=== PATIENT | male | born 1980 | race Caucasian/White ===

== ENCOUNTER 2018-09-11 19:48 | Emergency (ER) | payer OTHER, SELFPAY ==
[2018-09-11] VITALS (29 sets, daily range): BP systolic 184–221; BP diastolic 118–135; PULSE 87–100; RESP 2–20; TEMP 36.9–37.9; O2SAT 87–94
--- NOTE | 2018-09-11 20:19 | DI.RAD_ITS ---
SYMPTOM/DIAGNOSIS: COUGH, CONGESTION PA AND LATERAL CHEST: Comparison is made with 04/03/07. The heart is normal in size. The lungs are clear. The mediastinal structures and pleura appear intact. CONCLUSION: Normal chest.
--- NOTE | 2018-09-11 20:22 | ED.GENADUL_ITS ---
Discharge Plan Disposition Patient Disposition: HOME Condition: Poor Discharge Details Chief Complaint: RespSymp Clinical Impression: Community acquired pneumonia, Hypertension Primary Care Provider: Romelia De León ED Provider: Stuart Cisse Home Meds and New Rx's Prescriptions: New prednisone 20 mg tablet 60 mg PO DAILY 4 Days Qty: 12 RF: 0 levofloxacin 750 mg tablet 750 mg PO DAILY Qty: 6 RF: 0 Discharge Instructions Instructions: Community Acquired Pneumonia (ED), Hypertension (ED) Additional Instructions: follow up with your primary care provider to discuss having blood pressure medication and also having outpatient stress testing if you have worsening symptoms return to the emergency department for reevaluation Medical Decision Making <Peyman Lu MD - Last Filed: 09/11/18 22:50> 38-year-old male smoker presents with cough and congestion over 10 days time with associated fever and chills. He arrives hypertensive, pulse 100, with an oxygenation of 92% on room air. He is afebrile. Exam is notable for rhonchi and wheeze bilaterally. Differential diagnosis includes viral syndrome with bronchospasm, atypical presentation of congestive heart failure, pneumonia. Patient was placed on monitoring coordinator, had IV access established, given parenteral medications, fluids , referred for chest x-ray and laboratory testing. Patient's diagnostic studies reveal a white blood cell count 11, reassuring chemistries, AST 45, ALT 84. Patient's troponin is indeterminate at 0.08. BNP unremarkable. Given the patient's respiratory complaints, hypoxia, I do feel a PE must be excluded. As it is change of shift, patient be signed out to Dr. Jarek persaud. Please see his note regarding details of the patient's diagnostic imaging Lab Data Lab results reviewed: Yes I reviewed the patient's lab results. Laboratory Tests Range/Units 09/11/18 09/11/18 20:24 20:24 WBC (4.4-10.8) k/cumm 11.23 H RBC (4.50-6.00) m/cumm 5.00 Hgb (13.5-17.5) g/dL 16.6 Hct (40.0-50.0) % 45.5 MCV (80-95) fL 91.0 MCH (27.0-33.0) pg 33.2 H MCHC (32.0-36.0) g/dL 36.5 H RDW (11.8-14.1) % 12.7 Plt Count (130-400) x1000/uL 284 MPV (8.0-11.0) fL 10.1 Immature Gran % 0.4 Neutrophils % 68.2 Lymphocytes % 21.3 Monocytes % 6.9 Eosinophils % 2.8 Basophils % 0.4 Absolute Neutrophils (1.2-6.7) k/cumm 7.66 H Absolute Lymphocytes (1.2-3.4) k/cumm 2.39 Absolute Monocytes (0.11-0.7) k/cumm 0.77 H Absolute Eosinophils (0.0-0.7) k/cumm 0.31 Absolute Basophils (0.0-0.2) k/cumm 0.04 Sodium (136-145) mmol/L 139 Potassium (3.5-5.1) mmol/L 3.6 Chloride (98-107) mmol/L 101 Carbon Dioxide (21.0-32.0) mmol/L 28.3 Anion Gap (3-11) mmol/L 9.7 BUN (7-18) mg/dL 15 Creatinine (0.70-1.30) mg/dL 1.13 Estimated GFR/1.73 m2 (mL/min/1.73m2) >= 60.00 Glucose (70-100) mg/dL 164 H Calcium (8.5-10.1) mg/dL 9.2 Total Bilirubin (0.2-1.0) mg/dL 0.5 AST (15-37) U/L 45 H ALT (12-78) U/L 84 H Alkaline Phosphatase (46-116) U/L 77 Total Protein (6.4-8.2) g/dL 7.9 Albumin (3.4-5.0) g/dL 4.0 ECG Data Attestation: I personally reviewed and interpreted this ECG (s) as follows: Interpretation: Normal sinus rhythm, rate of 93, QRS is narrow, there is nonspecific T wave flattening with T wave inversions in the lateral leads. <Stuart Cisse MD - Last Filed: 09/11/18 23:46> Imaging Data Radiologic Study: Attestation: I personally reviewed and interpreted this imaging study as follows: Imaging: CT Scan Radiologist's impression: vrad report reviewed, no pe but has evidence of infection Lab Data Lab results reviewed: Yes I reviewed the patient's lab results. HPI <Peyman Lu MD - Last Filed: 09/11/18 22:50> General Mode of arrival: ambulatory . Date/Time Provider Initiated Documentation: 09/11/18 20:09 . Limitations to Documentation: no limitations . Information obtained by: patient . History of Present Illness 38 year old M presents to the emergency department with the chief complaint of Cough and congestion, described as moderate, Quality is described as aching , and is localized to the chest. Patient started experiencing this day(s) and it has been constant. No relieving factors improve symptom(s), No exacerbating factors reported . Patient notes fever/chills. HPI Narrative: 38-year-old male smoker who rarely sees a physician and does not have ongoing medical care presents with 10 days of cough, congestion, intermittent fever and chills Related Data Home Medications Medication Instructions Recorded Confirmed levofloxacin 750 mg PO DAILY #6 tab 09/11/18 prednisone 60 mg PO DAILY 4 Days #12 tab 09/11/18 Previous Rx's Medication Instructions Recorded levofloxacin 750 mg PO DAILY #6 tab 09/11/18 prednisone 60 mg PO DAILY 4 Days #12 tab 09/11/18 Allergies Allergy/AdvReac Type Severity Reaction Status Date / Time Penicillins Allergy Unverified 09/11/18 19:56 General Stated Complaint: RespSymp BRIAN: 3 Review of Systems <Peyman Lu MD - Last Filed: 09/11/18 22:50> Review of Systems 8 systems reviewed and otherwise - Exam <Peyman Lu MD - Last Filed: 09/11/18 22:50> Narrative Exam Narrative: GEN: awake, alert, oriented 3. Pleasant, well groomed, interactive. HEAD: Normocephalic, atraumatic ENT: Mucous membranes moist, oropharynx unremarkable, External ear exam unremarkable EYES: PERRL, EOMI NECK: Full ROM, no OSWALDO, no menigismus CHEST/RESP: Nontender, right greater than left rhonchi, end exp wheeze present bilat CARDIOVASCULAR: Regular and tach, no murmur, rub velma. 2+ Rad pulse bilateral ABDOMEN: Soft, nontender, no mass. +Bowel sounds EXT: Full ROM, no edema, no rash Neuro: Grossly normal neurologic exam, conversant, interactive. Psych: Speech fluent, thoughts congruent, affect normal Course <Peyman Lu MD - Last Filed: 09/11/18 22:50> Vital Signs Temperature 36.9 C 09/11/18 19:51 Pulse 100 H 09/11/18 19:51 Respiratory Rate 20 09/11/18 19:51 Blood Pressure 221/133 H 09/11/18 19:51 Pulse Oximetry 92 L 09/11/18 19:51 Temperature 36.9 C 09/11/18 19:51 Temperature Source Skin 09/11/18 19:51 Pulse 100 H 09/11/18 19:51 Respiratory Rate 20 09/11/18 19:51 Respiratory Effort 09/11/18 20:04 Respiratory Depth Normal 09/11/18 20:04 Blood Pressure 221/133 H 09/11/18 19:51 Blood Pressure Position Sitting 09/11/18 19:51 Pulse Oximetry 92 L 09/11/18 19:51 Oxygen Delivery Method Room Air 09/11/18 19:51 Oxygen Flow Rate 0 09/11/18 19:51 Sign Out <Peyman Lu MD - Last Filed: 09/11/18 22:50> Sign Out Data: Sign Out Comment: Follow-up CT Last updated by Peyman Lu MD at 09/11/18 22:50 Post-Handoff Eval: Pt remains hd stable, does have htn, but doesn't seen a pcp regularly so could have undiagnosed htn, has no chest pain or pressure or sob so do not feel acute antihypternsive needed at this time. His CTA shows no Pe but does have evidence of infection so started levofloacin given pcn allergy. He has no desire to stay despite delta troponin being 0.10, and understands risks of leaving including /permanent disability and has capacity to make his own decisions and is leaving Against my medical advise. I will start him on course of steroids and abx, advised return if worsening/changes mind and return precautions given. Also advised f/u with pcp and discuss antihtn meds if continues to be hypertensive
[2018-09-11] MEDS: Albuterol/Ipratropium 3 ML UPD VIAL UPD ×2 (20:34→21:39)
[2018-09-11] MEDS: Ketorolac 30 MG/ML VIAL IVP (20:34)
[2018-09-11] MEDS: Normal Saline 1,000 ML 1000 ML IV (20:35)
[2018-09-11 20:46] LABS: ALT 84 U/L (12-78); AST 45 U/L (15-37); Alkaline Phosphatase 77 U/L (46-116); Anion Gap 9.7 mmol/L (3-11); BUN 15 mg/dL (7-18); Bilirubin, Total 0.5 mg/dL (0.2-1.0); CO2 28.3 mmol/L (21.0-32.0); CREATININE 1.13 mg/dL (0.70-1.30); Calcium 9.2 mg/dL (8.5-10.1); Chloride 101 mmol/L (98-107); Glucose 164 mg/dL (70-100); Potassium 3.6 mmol/L (3.5-5.1); Sodium 139 mmol/L (136-145); Total Protein 7.9 g/dL (6.4-8.2)
[2018-09-11 21:13] LABS: Abs Immature Grans 0.05 k/cumm (0.0-0.09); Absolute Basophil Count 0.04 k/cumm (0.0-0.2); Absolute Eosinophil Count 0.31 k/cumm (0.0-0.7); Absolute Lymphocyte Count 2.39 k/cumm (1.2-3.4); Absolute Monocyte Count 0.77 k/cumm (0.11-0.7); Basophils % 0.4; Eosinophils % 2.8; HCT 45.5 % (40.0-50.0); HGB 16.6 g/dL (13.5-17.5); Immature Grans % 0.4; Lymphocytes % 21.3; Mean Corp. HGB Concentration 36.5 g/dL (32.0-36.0); Mean Corpuscular Hemoglobin 33.2 pg (27.0-33.0); Mean Platelet Volume 10.1 fL (8.0-11.0); Monocytes % 6.9; Neutrophils % 68.2; Platelet Count 284 x1000/uL (130-400); RBC Distribution Width 12.7 % (11.8-14.1); White Blood Cell Count 11.23 k/cumm (4.4-10.8)
[2018-09-11 21:14] LABS: Absolute Neutrophil Count 7.66 k/cumm (1.2-6.7)
--- NOTE | 2018-09-11 21:28 | DI.VRAD_ITS ---
EXAM: XR Chest, 2 Views EXAM DATE/TIME: 09/11/2018 8:20 PM CLINICAL HISTORY: 38 years old, male; Signs and symptoms; Other: Cough, congestion TECHNIQUE: XR of the chest, 2 views. COMPARISON: No relevant prior studies available. FINDINGS: Lungs: Unremarkable. No consolidation. Pleural space: Unremarkable. No pleural effusion. No pneumothorax. Heart/Mediastinum: Unremarkable. No cardiomegaly. Bones/joints: No acute bony findings. IMPRESSION: Normal chest x-ray. Dictated and Authenticated by: Elton Galindo MD. Ordering:ARRON AREVALO MD
[2018-09-11] MEDS: methylPREDNISolone SUCC 125 MG VIAL IVP (21:53)
[2018-09-11 22:11] LABS: NT-proBNP 129 pg/mL
[2018-09-11 22:13] LABS: Troponin I 0.08 ng/mL (0.00-0.06)
--- NOTE | 2018-09-11 22:22 | DI.CT_ITS ---
SYMPTOM/DIAGNOSIS: SOB, BORDERLINE TROPONIN PE CHEST CT: CT angiography was performed with multi slice acquisition and multi planar and 3D reconstruction. CT scan of the chest was performed according to the pulmonary embolus protocol. There are no priors for comparison. There is no evidence of a pulmonary embolus. The thoracic aorta is of normal caliber. No evidence of a thoracic aortic dissection or aneurysm. Heart size is within normal limits. No significant pericardial effusion. No findings to suggest right ventricular dysfunction. No significant thoracic adenopathy is seen. No pleural effusion or pneumothorax is identified. Within the lungs, there are infiltrates seen predominantly involving the right lower lobe but there does appear to be involvement in the right middle and left lower lobe. This has a tree and bud appearance. No focal consolidating infiltrates are seen. The tracheobronchial tree is unremarkable. Upper abdominal images show diffuse decreased attenuation of the liver most suggestive of hepatic steatosis. Note is made of mild bilateral gynecomastia. IMPRESSION: 1. No evidence of a pulmonary embolus, thoracic aortic dissection or aneurysm. 2. Diffuse centrilobular tree and bud nodular opacities , predominantly affecting the right lower lobe but also involving the right middle and left lower lobes. The findings are suspicious for an atypical pneumonia. 3. Hepatic steatosis and mild gynecomastia.
[2018-09-11] MEDS: Omnipaque 350 MG/ML 100 ML BTL IV (22:37)
--- NOTE | 2018-09-11 23:12 | DI.VRAD_ITS ---
EXAM: CT Angiography Chest With Intravenous Contrast EXAM DATE/TIME: 09/11/2018 10:24 PM CLINICAL HISTORY: 38 years old, male; Signs and symptoms; Other: SOB, borderline troponin TECHNIQUE: Axial computed tomographic angiography images of the chest with intravenous contrast using CT angiography protocol. All CT scans at this facility use at least one of these dose optimization techniques: automated exposure control; mA and/or kV adjustment per patient size (includes targeted exams where dose is matched to clinical indication); or iterative reconstruction. Coronal and sagittal reformatted images were created and reviewed. MIP reconstructed images were created and reviewed. CONTRAST: 100 ml of omnipaque 350 administered intravenously. COMPARISON: CR XR CHEST 2V PA LATERAL 09/11/2018 9:00 PM FINDINGS: Pulmonary arteries: No evidence of pulmonary embolism. Aorta: Normal. No aortic aneurysm. No aortic dissection. Lungs: There are centrilobular opacities in a tree in bud distribution throughout the right lung, most prominently affecting the right middle and lower lobes. More subtle opacity is seen in the left lower lobe. These findings are nonspecific but most likely reflect endobronchial spread of infection, likely atypical pneumonia. There is no large consolidation. Pleural space: Normal. No pneumothorax. No pleural effusion. Heart: Normal. No cardiomegaly. No pericardial effusion. Bones/joints: Unremarkable. No acute fracture. Soft tissues: Mild gynecomastia. Lymph nodes: Unremarkable. No enlarged lymph nodes. IMPRESSION: 1. Diffuse centrilobular tree in bud nodular opacities, most prominently affecting the right middle and lower lobes. The findings are nonspecific but most likely reflect endobronchial spread of infection, likely atypical pneumonia. 2. No evidence of pulmonary embolism. 3. Mild gynecomastia. Dictated and Authenticated by: Shonna Coleman MD. Ordering:ARRON AREVALO MD
[2018-09-11] MEDS: LEVOFLOXACIN 500 MG, LEVOFLOXACIN 250 MG 750 MG PO (23:18)
[2018-09-12] MEDS: Albuterol HFA 8 GM 60 PUFF INH IH
[2018-09-12] MEDS: Inhaler, Assist Device 1 EACH MC (00:02)
== END 2018-09-12 | disposition home or self-care (01) ==
PROVIDERS: Emergency Medicine; Emergency Provider Emergency Medicine
DX: J18.9 Pneumonia, unspecified organism (principal); I10 Essential (primary) hypertension; R09.02 Hypoxemia; F17.210 Nicotine dependence, cigarettes, uncomplicated
CPT/HCPCS: 36415; 71275; 80053; 93005; 94640; 96361; 96374; 96375; 99285; 71046; 83880; 84484; 85025; 93010; J1885; J2930; J3490; J7620

== ENCOUNTER 2018-10-09 17:33 | Outpatient (REF) | payer OTHER, SELFPAY ==
[2018-10-09 22:13] LABS: Prothrombin Time 9.4 sec (9.3-10.8)
[2018-10-09 22:15] LABS: Bilirubin Negative (Negative); Blood Negative (Negative); Clarity Clear; Glucose Negative (Negative); Ketones Negative (Negative); Leukocyte Esterase Trace (Negative); Nitrite Negative (Negative); Specific Gravity 1.025 (1.005-1.025); Urobilinogen 0.2 EU/dL (Up TO 0.2); pH 5.5 (5-8)
[2018-10-09 22:34] LABS: Bacteria Negative HPF (Negative); C & S Indicated? No; Casts Negative LPF (Negative); Crystals Negative HPF (Negative); Epithelial Cells Negative HPF (Negative); Mucus Negative (Negative); Other Cells Negative (Negative); RBC Negative (0-2); WBC Negative HPF (0-5)
[2018-10-09 23:02] LABS: ALT 83 U/L (12-78); AST 34 U/L (15-37); Albumin 4.3 g/dL (3.4-5.0); Alkaline Phosphatase 68 U/L (46-116); Anion Gap 9.7 mmol/L (3-11); BUN 13 mg/dL (7-18); Bilirubin, Total 0.5 mg/dL (0.2-1.0); CO2 29.3 mmol/L (21.0-32.0); CREATININE 0.99 mg/dL (0.70-1.30); Calcium 9.8 mg/dL (8.5-10.1); Chloride 101 mmol/L (98-107); Cholesterol 205 mg/dL (50-200); Folate 14.8 ng/mL (8.6-20.0); Glucose 87 mg/dL (70-100); HDL Cholesterol 39 mg/dL (40-60); LDL CHOLESTEROL 135 mg/dL (<100); Potassium 3.8 mmol/L (3.5-5.1); Sodium 140 mmol/L (136-145); Total Protein 7.5 g/dL (6.4-8.2); Triglyceride 171 mg/dL (30-150); Vitamin B12 637 pg/mL (193-986)
[2018-10-11 10:28] LABS: Hepatitis A Antibody IgM Negative (NEGAT); Hepatitis B Core Antibody Negative (NEGAT); Hepatitis B surface Ag Negative (NEGAT); Hepatitis C Ab w Rflx HCV PCR Negative (NEGAT)
== END 2018-10-09 17:53 ==
LOC: NCHCN 17:33
PROVIDERS: Visit Provider Nurse Practitioner Family
DX: F10.10 Alcohol abuse, uncomplicated (principal); I10 Essential (primary) hypertension; R80.9 Proteinuria, unspecified; Z00.00 Encounter for general adult medical examination without abnormal findings
CPT/HCPCS: 80053; 80061; 83721; 86704; 86709; 86803; 87340; 81003; 81015; 82607; 82746; 85610

== ENCOUNTER 2021-07-03 16:00 | Outpatient (REF) | payer SELFPAY ==
[2021-07-03 21:16] LABS: HCT 47.4 % (40.0-50.0); HGB 16.4 g/dL (13.5-17.5)
[2021-07-03 21:30] LABS: ALT 128 U/L (16-63); AST 61 U/L (15-37); Alkaline Phosphatase 64 U/L (46-116); BUN 17 mg/dL (7-18); Bilirubin, Total 0.4 mg/dL (0.2-1.0); CREATININE 1.1 mg/dL (0.70-1.30); Calcium 9.4 mg/dL (8.5-10.1); Calculated LDL 100 mg/dL (<100); Chloride 104 mmol/L (98-107); Cholesterol 197 mg/dL (<200); Glucose 82 mg/dL (74-106); HDL Cholesterol 32 mg/dL (40-60); Potassium 4.4 mmol/L (3.5-5.1); Sodium 143 mmol/L (136-145); TSH (W/Ref FT4) 0.72 uIU/mL (0.36-3.74); Total Protein 7.3 g/dL (6.4-8.2); Triglyceride 325 mg/dL (<150)
[2021-07-06 10:54] LABS: Hepatitis C Ab w Rflx HCV PCR Negative (Negative)
== END 2021-07-03 16:01 | disposition home or self-care (01) ==
LOC: NCHCN 16:00
PROVIDERS: Visit Provider Family Medicine
DX: I10 Essential (primary) hypertension (principal); G47.9 Sleep disorder, unspecified; R53.83 Other fatigue; Z00.00 Encounter for general adult medical examination without abnormal findings
CPT/HCPCS: 80053; 80061; 86803; 84443; 85014; 85018

== ENCOUNTER 2024-06-16 11:48 | Emergency (ER) | payer BC, SELFPAY ==
[2024-06-16] VITALS (44 sets, daily range): BP systolic 191–253; BP diastolic 116–164; PULSE 72–104; RESP 7–22; TEMP 36.5; O2SAT 97–100
--- NOTE | 2024-06-16 11:45 | DI.RAD_ITS ---
Exam(s) XR ANKLE LT 2V EXAM: XR ANKLE LT 2V CLINICAL HISTORY: dislocation. TECHNIQUE: 2D digital imaging was performed. COMPARISON: No exams were available for comparison FINDINGS: Two views There is a displaced and comminuted fracture dislocation of the ankle-tibiotalar joint. Talus is dis located anteriorly and laterally. In addition there is a displaced comminuted fracture at the juncti on of the mid and distal thirds of the fibula. There are no malleolar fractures. IMPRESSION: Fracture dislocation of the ankle joint. Also comminuted fracture of fibula DATA REPOSITORY: RADIATION DOSE DELIVERED:
[2024-06-16] MEDS: Ondansetron 4 MG/2 ML VIAL IVP (12:11)
[2024-06-16] MEDS: fentaNYL 100 MCG/2 ML VIAL IVP (12:12)
--- NOTE | 2024-06-16 12:30 | DI.RAD_ITS ---
Exam(s) XR ANKLE LT COMPLETE EXAM: XR ANKLE LT COMPLETE CLINICAL HISTORY: reduction. TECHNIQUE: 2D digital imaging was performed. COMPARISON: CR,XR XR ANKLE LT 2V from 06/16/2024 FINDINGS: 3 in cast views The fracture dislocation of the ankle is been reduced with significant improvement in alignment of th e tibiotalar joint. In addition, there is improved alignment of the comminuted fracture at the junct ion of the mid and distal thirds of the fibula. Talar dome is intact. IMPRESSION: Fracture dislocation of the tibiotalar joint is been reduced. Significant improvement in alignment a s described above. DATA REPOSITORY: RADIATION DOSE DELIVERED:
[2024-06-16] MEDS: Propofol 200 MG/20 ML VIAL 100 MG IVP (12:38)
--- NOTE | 2024-06-16 12:54 | RESPIRATORY ---
06/16/2024 RT present for consious sedation. Ambu bag, oral/nasal airway, NRB, suction at bedside. Continuous CO2 monitoring and 2L nc ON PT. No RT interventions needed. End vitals HR 88, RR15, ETCO2 32,SPO2 100% on 2L. Pt awake and talking when RT left room.
--- NOTE | 2024-06-16 13:24 | DI.VRAD_ITS ---
PROCEDURE INFORMATION: Exam: XR Left Ankle Exam date and time: 06/16/2024 12:59 PM Age: 44 years old Clinical indication: Other: Post reduction TECHNIQUE: Imaging protocol: Radiologic exam of the left ankle. Views: 3 or more views. COMPARISON: CR XR ANKLE LT 2V 06/16/2024 12:07 PM FINDINGS: Bones/joints: The fracture dislocation of the ankle has been reduced. Marked improvement in the alignment of the tibiotalar joint. The comminuted minimally displaced fibular fracture is improved in alignment.. Soft tissues: Soft tissue swelling of the ankle IMPRESSION: The fracture dislocation of the ankle has been reduced. Marked improvement in the alignment of the tibiotalar joint. The comminuted minimally displaced fibular fracture is improved in alignment.. Dictated and Authenticated by: Gerald Lubin MD. Ordering:JOS Gonzales MD
--- NOTE | 2024-06-16 13:24 | DI.VRAD_ITS ---
PROCEDURE INFORMATION: Exam: XR Left Ankle Exam date and time: 06/16/2024 12:07 PM Age: 44 years old Clinical indication: Other: Dislocation TECHNIQUE: Imaging protocol: Radiologic exam of the left ankle. Views: 1 or 2 views. COMPARISON: No relevant prior studies available. FINDINGS: Bones/joints: Comminuted displaced fracture or dislocation of the ankle. The talus is dislocated laterally and anteriorly. There is a comminuted displaced fracture in the distal fibular shaft. Soft tissues: Soft tissue swelling of the ankle IMPRESSION: Comminuted displaced fracture or dislocation of the ankle. The talus is dislocated laterally and anteriorly. There is a comminuted displaced fracture in the distal fibular shaft. Dictated and Authenticated by: Gerald Lubin MD. Ordering:JOS Gonzales MD
--- NOTE | 2024-06-16 14:10 | ED.GENADUL_ITS ---
Discharge Plan Disposition Patient Disposition: Home Condition: Stable Discharge Details Clinical Impression: Fracture dislocation of left ankle Primary Care Provider: Romelia De León ED Provider: Julieth Rosales Home Meds and New Rx's Prescriptions: No Action No Known Home Meds Discharge Instructions Instructions: How to Use Crutches, Ankle Fracture ED, Splint Care ED Additional Instructions: * You could not put any weight on your left ankle as this fracture is not stable and will need operative repair * Use crutches to ambulate * The splint cannot get wet * pain medication pills provided for severe pain, otherwise please motrin and tylenol for pain. Keep * If you have any numbness tingling or significant worsening of pain, please return to the emergency department * Ortho will contact you early next week for follow-up appointment. If there are any issues with follow-up, please return to the emergency department. You will likely need surgery for this injury and this should take place here or at [facility]. HPI General Date/Time Provider Initiated Documentation: 06/16/24 11:58 . Limitations to Documentation: no limitations and physical limitation . Information obtained by: patient . HPI Narrative: 44Y M without significant PMH presents via EMS for evaluation of acute left ankle pain. 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 he was immediately unable to put weight on his leg and had to crawl back to the house. he denies any bleeding. denies any numbness or tingling. EMS gave tylenol without significant change in pain. Related Data Home Medications ?Medication ?Instructions ?Recorded ?Confirmed Unknown [No Known Home Meds] 06/16/24 06/16/24 Allergies Allergy/AdvReac Type Severity Reaction Status Date / Time Penicillins Allergy Unverified 09/11/18 19:56 General Stated Complaint: Orthopedic BRIAN: 3 Exam Narrative Exam Narrative: Review of Systems: All systems reviewed & are unremarkable except as noted in HPI and below Well-developed, appears uncomfortable NCAT PERRL, normal conjunctiva RRR, hypertensive Unlabored respiratory effort, CTAB Nondistended abdomen left ankle with obvious deformity and dislocation of tibia, significant skin tenting without open wound 2+ DP pulse, sensation intact No rashes or lesions. no focal neurologic deficits Appropriate mood and affect Course Vital Signs Vital signs: Vital Signs Temperature 36.5 C 06/16/24 11:44 Pulse 91 H 08/10/24 11:44 Respiratory Rate 18 06/16/24 11:44 Blood Pressure 253/164 H 06/16/24 11:44 Pulse Oximetry 100 06/16/24 11:44 Temperature 36.5 C 06/16/24 11:44 Pulse 74 06/16/24 13:16 Pulse 79 06/16/24 13:16 Respiratory Rate 13 06/16/24 13:16 Respiratory Effort Normal, Non-Labored 06/16/24 13:16 Blood Pressure 191/116 H 06/16/24 13:16 Blood Pressure Mean 136 06/16/24 13:16 Pulse Oximetry 98 06/16/24 13:16 Respiratory End-tidal CO2 33 06/16/24 13:11 Pain Level 8 06/16/24 12:12 Procedures Orthopedic Joint Reduction Joint #1: Side: left Joint Reduction Location: ankle Analgesia: procedural sedation Technique used: direct manipulation Post-reduction neuro exam: intact Post-reduction vascular: intact Post Reduction X-Ray Obtained: Yes Post Reduction X-Ray Results: reduced Splint Applied: Yes Patient Tolerated Procedure: well and no complications Orthopedic Splinting/Casting Injury #1: Side: left Lower Extremity Injury Location: ankle Lower Extremity Immobilizer: posterior splint and stirrup splint Procedural Sedation Indication: fracture/dislocation reduction ASA Class: II Time of Last PO Intake: 08:00 Preparation: crm specialist applied, pulse oximeter, capnometry used, supplemental O2 applied, reversal agents at bedside, suction/airway equipment at bedside and IV secured Fentanyl: IV Fentanyl dose (mcg): 10 (100) IV Propofol dose (mg): 80 Patient Tolerated Procedure: well and no complications Medical Decision Making Emergent evaluation of acute traumatic left ankle injury. Obvious dislocation noted but neurovascularly intact. X-ray imaging obtained dislocation fracture noted. Patient consented for sedation. At this time we do not have orthopedics on-call the patient may need to be transferred to outside facility. Sedation and reduction performed successfully, no complications. Tolerated the sedation well. Joint is very unstable but splint was applied. X-ray imaging does indicate appropriate reduction. I have reached out to [facility] since we do not have orthopedics available. Waiting to hear from them[place] [facility] [place] and case. No indication for emergent transfer. Will discharge with crutches, nonweightbearing. Return precautions advised. Have arranged for urgent follow-up with orthopedic surgery next week when they return for operative management. Patient updated on this plan and feels comfortable going home. Right now pain is well-controlled. Medical Records Medical records reviewed: Yes I reviewed the patient's medical records. Lab Data Lab results reviewed: Yes I reviewed the patient's lab results. Quality:SDOH Health Related Social Needs: No Data to Display PFSH All Active Problems (Updated 06/16/24 @ 15:20 by Julieth Rosales MD) Fracture dislocation of left ankle (Acute) Social History Smoking/Tobacco Use Status: Current every day Tobacco Type: cigarettes Smoking risk assessment performed?: Yes Alcohol Intake: current Alcohol Intake frequency: a few times a week Drug use: Never Substance use type: does not use Housing: house Do you feel safe at home: Yes Do you feel safe in your relationship?: Yes Additional Social history: at side, very supportive
== END 2024-06-16 16:14 | disposition home or self-care (01) ==
PROVIDERS: Emergency Provider Emergency Medicine
DX: S82.452A Displaced comminuted fracture of shaft of left fibula, initial encounter for closed fracture (principal); S92.192A Other fracture of left talus, initial encounter for closed fracture; F17.290 Nicotine dependence, other tobacco product, uncomplicated; W55.22XA Struck by cow, initial encounter; Y92.73 Farm field as the place of occurrence of the external cause; Y93.K9 Activity, other involving animal care
CPT/HCPCS: 28435; 96374; 96375; 99284; 73600; 73610; J2405; J2704; J3010

== ENCOUNTER 2024-10-12 19:18 | Outpatient (CLI) | payer BC, SELFPAY ==
--- NOTE | 2024-10-12 19:15 | RT.EKG_ITS ---
APPROVED REPORT Exam: Resting ECG Reason for Exam: Hypertension Patient Location: O HR:84 bpm ECG Measurements Heart Rate 84 AXIS KS 146 P 46 QRSd 117 QRS 9 QT 396 T 45 QTc 469 Conclusion Sinus rhythm...normal P axis, V-rate 50- 99 Multiple ventricular premature complexes...V complexes w/ short R-R intervls Left atrial enlargement...P, P'>60mS, <-0.15mV V1 Nonspecific intraventricular conduction delay...QRSd >115mS, not LBBB/RBBB Anterior infarct, possibly acute...ST >0.15mV, upright T, V2-V5 Baseline wander in lead(s) V1,V3
== END 2024-10-12 19:19 | disposition home or self-care (01) ==
LOC: DI.CM 19:20
PROVIDERS: PCP Family Medicine; Visit Provider Nurse Practitioner Family
DX: I10 Essential (primary) hypertension (principal)
CPT/HCPCS: 93010

== ENCOUNTER 2024-10-12 19:44 | Emergency (ER) | payer BC, SELFPAY ==
[2024-10-12] VITALS (68 sets, daily range): BP systolic 184–240; BP diastolic 137–159; PULSE 67–90; RESP 6–24; TEMP 36.5–36.9; O2SAT 94–99
--- NOTE | 2024-10-12 19:45 | RT.EKG_ITS ---
APPROVED REPORT Exam: Resting ECG Reason for Exam: Abnormal ekg Express care Patient Location: E HR:85 bpm ECG Measurements Heart Rate 85 AXIS MO 147 P 44 QRSd 115 QRS 1 QT 390 T 49 QTc 463 Conclusion Sinus rhythm...normal P axis, V-rate 60- 99 Nonspecific intraventricular conduction delay...QRSd >115mS, not LBBB/RBBB ST elev, probable normal early repol pattern...ST elevation, age<[address] segment or T wave abnormalities to suggest occlusive CO
--- NOTE | 2024-10-12 20:00 | DI.RAD_ITS ---
Exam(s) XR CHEST 2V PA LATERAL EXAM: XR CHEST 2V PA LATERAL CLINICAL HISTORY: left arm pain, ACS workup TECHNIQUE: 2D digital imaging was performed. Two views. FINDINGS: HEART: Normal size. Aorta: Not dilated. PULMONARY VASCULATURE: Normal. MEDIASTINUM: Unremarkable. LUNGS: Clear. PLEURAL SPACE: No pleural effusion or pneumothorax. BONE:Unremarkable for age. SOFT TISSUES: Unremarkable. IMPRESSION: No acute abnormality. DATA REPOSITORY: RADIATION DOSE DELIVERED:
[2024-10-12 20:17] LABS: Abs Immature Grans 0.06 10^3/uL (0.0-0.06); Absolute Basophil Count 0.06 10^3/uL (0.0-0.2); Absolute Eosinophil Count 0.54 10^3/uL (0.0-0.7); Absolute Lymphocyte Count 3.01 10^3/uL (1.2-3.4); Absolute Monocyte Count 0.79 10^3/uL (0.1-0.8); Absolute Neutrophil Count 7.77 10^3/uL (1.2-6.7); Basophils % 0.5 %; Eosinophils % 4.4 %; HGB 16.2 g/dL (13.5-17.5); Immature Grans % 0.5 %; Lymphocytes % 24.6 %; MCH 31.5 pg (27.0-33.0); MCHC 34.5 % (32.0-36.0); MCV 91 fL (80-95); MPV 9.9 fL (8.0-11.0); Monocytes % 6.5 %; Neutrophils % 63.5 %; Platelet Count 253 10^3/uL (130-400); RBC 5.15 10^6/uL (4.36-5.78); RDW 11.9 % (11.8-14.1); RDW-SD 39.9 fL; WBC 12.23 10^3/uL (4.4-10.8)
[2024-10-12] MEDS: Clindamycin 150 MG CAP 450 MG PO (20:19)
[2024-10-12] MEDS: Metoprolol 50 MG TAB PO (20:19)
--- NOTE | 2024-10-12 20:25 | ED.GENADUL_ITS ---
Discharge Plan Disposition Patient Disposition: Home Condition: Good Discharge Details Clinical Impression: Hypertension, Abnormal ECG, Cellulitis Primary Care Provider: Reina Gomez V ED Provider: Meaghan Mccray Home Meds and New Rx's Prescriptions: New clindamycin HCl 300 mg capsule 300 mg PO Q6H Qty: 20 0RF Continued atenolol 50 mg tablet 50 mg PO BID Qty: 120 0RF turmeric 1 cap PO .PO Patient Comments: Pt states he takes 1 turmeric gummy daily 10/12/24 hermes (Zingiber officinalis) 1 cap PO DAILY Patient Comments: Pt states he takes a hermes gummy supplement daily 10/12/24 Discontinued doxycycline hyclate 100 mg capsule 100 mg PO BID Qty: 14 0RF Rx Instructions: Avoid sun exposure. Take with meal. Take 1 pill every 12 hours x 7 days Discharge Instructions Instructions: High blood pressure in adults, Cellulitis (Skin Infection), Adult ED Additional Instructions: Take the atenolol you were prescribed at urgent care. Do not take the doxycycline- instead take clindamycin 300mg four times a day. Call your primary care doctor to schedule an appointment to be seen early next week to followup on your visit here. It is very important that you followup on your blood pressure and other symptoms- just because you are not having a heart attack today does not mean you are not at risk in the future. Return to the emergency department for new or worsening symptoms including worsening redness or pain in your arm, chest pain, shortness of breath, vision changes, severe headache, or if you have any other concerns. Referrals: Reina Gomez MD [Primary Care Provider] - [facility] General Mode of arrival: ambulatory . Date/Time Provider Initiated Documentation: 10/12/24 19:50 . Limitations to Documentation: no limitations . Information obtained by: patient and old records reviewed (EKG from today) . HPI Narrative: 44yo M with HTN (not currently on medication) and obesity presenting from urgent care for abnormal EKG. Initially went to for left forearm redness, diagnosed with cellulitis and prescribed doxycycline. He has also had left shoulder pain for about two weeks while using crutches, sometimes with paresthesias in his arm and hand. EKG from urgent care reportedly with ST elevations V1-V3; pt given 325 of ASA and advised to go the ED (pt chose to go by private vehicle). He does have mild left forearm pain currently, no left shoulder or jaw pain. No chest pain or shortness of breath at any point. No lightheadedness, syncope, nausea, vomiting, or diaphoresis. No personal hx of DM, HLD, CAD, NE, vascular disease, CVA/TIA. No family history cardiovascular disease before age 65. Nonsmoker. Aside from left forearm he feels entirely well. Otherwise in his usual state of health with no fevers, chills, abdominal pain, back pain, or other concerns. Related Data Home Medications ?Medication ?Instructions ?Recorded ?Confirmed atenolol 50 mg tablet 50 mg PO BID #120 tabs 10/12/24 10/12/24 clindamycin HCl 300 mg capsule 300 mg PO Q6H #20 caps 10/12/24 hermes (Zingiber officinalis) 1 cap PO DAILY 10/12/24 10/12/24 turmeric 1 cap PO .PO 10/12/24 10/12/24 Previous Rx's ?Medication ?Instructions ?Recorded atenolol 50 mg tablet 50 mg PO BID #120 tabs 10/12/24 clindamycin HCl 300 mg capsule 300 mg PO Q6H #20 caps 10/12/24 Allergies Allergy/AdvReac Type Severity Reaction Status Date / Time Penicillins Allergy Severe Swelling/Ed Verified 10/12/24 20:04 tomy General Stated Complaint: GenMedical BRIAN: 3 Review of Systems Narrative: see HPI Exam Narrative Exam Narrative: General: Alert, well appearing, well nourished, in no acute distress. Head: Normocephalic, atraumatic Neck: Trachea midline, ?Neck supple. ENT: ?MMM.? No oropharygeal lesions or exudate. Cardiac: ?RRR, no murmurs appreciated. 2+ radial pulses symmetric bilaterally. Resp: No respiratory distress. CTAB. Abd: ?Soft, non-distended, nontender : ?No suprapubic tenderness. No CVA tenderness. Extremities: ?No deformities.? No peripheral edema. Left forearm with area of erythema and slight tenderness (outlined with pen) with no skin breakdown. Neurologic: GCS 15. ? Moves all extremities freely against gravity. Sensation intact and symmetric to light touch bilateral UE. 5/5 muscle strength bilater bulmaro UE. Course Vital Signs Vital signs: Vital Signs Pulse 90 10/12/24 19:48 Respiratory Rate 16 10/12/24 19:48 Blood Pressure 240/152 H 10/12/24 19:48 Pulse Oximetry 97 10/12/24 19:48 Temperature 36.9 C 10/12/24 19:58 Temperature Source Temporal Artery Scan 10/12/24 19:58 Pulse 90 10/12/24 19:58 Pulse 85 10/12/24 20:00 Respiratory Rate 13 10/12/24 20:00 Respiratory Effort Normal, Non-Labored 10/12/24 19:59 Respiratory Depth Normal 10/12/24 19:59 Respiratory Pattern Normal 10/12/24 19:59 Blood Pressure 240/152 H 10/12/24 19:58 Blood Pressure Mean 184 10/12/24 19:55 Blood Pressure Position Supine 10/12/24 19:58 Pulse Oximetry 97 10/12/24 20:00 Oxygen Delivery Method Room Air 10/12/24 19:58 Oxygen Flow Rate 0 10/12/24 19:58 Pain Level 0 10/12/24 19:[address] Mccray aware of BP 10/12/24 19:55 Lab/Test Results Lab/Test Results: Laboratory Tests Range/Units 10/12/24 19:53 WBC (4.4-10.8) 10^3/uL 12.23 H RBC (4.36-5.78) 10^6/uL 5.15 Hgb (13.5-17.5) g/dL 16.2 Hct (40.0-50.0) % 47.0 MCV (80-95) fL 91 MCH (27.0-33.0) pg 31.5 MCHC (32.0-36.0) % 34.5 RDW (11.8-14.1) % 11.9 Plt Count (130-400) 10^3/uL 253 MPV (8.0-11.0) fL 9.9 Immature Gran % % 0.5 Neutrophils % % 63.5 Lymphocytes % % 24.6 Monocytes % % 6.5 Eosinophils % % 4.4 Basophils % % 0.5 Nucleated RBC % (0.0-0.3) % 0.0 Absolute Neutrophils (1.2-6.7) 10^3/uL 7.77 H Absolute Lymphocytes (1.2-3.4) 10^3/uL 3.01 Absolute Monocytes (0.1-0.8) 10^3/uL 0.79 Absolute Eosinophils (0.0-0.7) 10^3/uL 0.54 Absolute Basophils (0.0-0.2) 10^3/uL 0.06 Medical Decision Making 44yo M with HTN (not currently on medication) and obesity presenting from urgent care for abnormal EKG. Initially went to for left forearm redness, diagnosed with cellulitis and prescribed doxycycline. He has also had left shoulder pain for about two weeks while using crutches, sometimes with paresthesias in his arm and hand. Abnormal EKG at urgent care; pt given 325 of ASA and advised to go the ED. Hypertensive on arrival, vital signs otherwise reassuring. Left forearm cellulitis on exam, not suggestive of MRSA. Otherwise normal physical exam. -Doxycycline like not adequate coverage for strep. Pt with pxn allergy, out of abundance caution will avoid cephalosporins and treat with clindamycin. -Is supposed to be HCTZ and atenolol but has not been taking. Reports his BP is typically 190's/100's. Will treat with PO metoprolol here for BP 240/152. No symptoms to suggest hypertensive emergency. EKG from urgent care reviewed, shows PVCs, possible slight IVD with QRS ~115, likely some ST elevations V1-V3 with interpretation limited 2/t baseline wander. EKG on arrival here NSR, QRS again ~115, slight ST elevations V1-V3 with no ST segment or T wave abnormalities suggestive of occlusive NE. Low suspicion for ACS; will workup further with labs, CXR. -CXR independently reviewed, no focal pneumonia or pneumothorax on my view, agree with radiology read below. -Labs reviewed as below, CBC with mild leukocytosis (nonspecific), CMP with no actionable abnormalities, coags normal, BNP not suggestive of heart failure, initial troponin 70 with one hour repeat troponin also 70, dimer slightly elevated at 539. Given marked hypertension and left arm neurologic symptoms, must consider aortic dissection (though less likely with no significant pain, not impossible) and unable to rule out with dimer. Will get CTA to further evaluate. -CTA independently reviewed, no clear aortic dissection on my view; radiology read below. On reassessment patient remains well appearing with no chest pain or anginal equivalents. HEART score low-risk; would not admit for further ACS workup/troponins/etc, he is appropriate for outpatient followup. BP improved to 184/137. Was prescribed atenolol from urgent care, he was instructed to pick this up tomorrow and take as prescribed. Sent prescription for clindamycin in lieu of doxycycline. Discharged home; discharge instructions and return precautions were reviewed with patient who verbalized understanding. All questions were answered and he is in full agreement with the plan. Medical Records Medical records reviewed: Yes I reviewed the patient's medical records. Imaging Data Radiologic Study: Radiologist's impression: CXR: IMPRESSION: No acute disease. CTA: IMPRESSION: No evidence of aortic dissection or aneurysm. No acute findings Lab Data Lab results reviewed: Yes I reviewed the patient's lab results. Labs: Laboratory Tests Range/Units 10/12/24 10/12/24 19:53 20:52 WBC (4.4-10.8) 10^3/uL 12.23 H RBC (4.36-5.78) 10^6/uL 5.15 Hgb (13.5-17.5) g/dL 16.2 Hct (40.0-50.0) % 47.0 MCV (80-95) fL 91 MCH (27.0-33.0) pg 31.5 MCHC (32.0-36.0) % 34.5 RDW (11.8-14.1) % 11.9 Plt Count (130-400) 10^3/uL 253 MPV (8.0-11.0) fL 9.9 Immature Gran % % 0.5 Neutrophils % % 63.5 Lymphocytes % % 24.6 Monocytes % % 6.5 Eosinophils % % 4.4 Basophils % % 0.5 Nucleated RBC % (0.0-0.3) % 0.0 Absolute Neutrophils (1.2-6.7) 10^3/uL 7.77 H Absolute Lymphocytes (1.2-3.4) 10^3/uL 3.01 Absolute Monocytes (0.1-0.8) 10^3/uL 0.79 Absolute Eosinophils (0.0-0.7) 10^3/uL 0.54 Absolute Basophils (0.0-0.2) 10^3/uL 0.06 PT (9.1-11.1) sec 10.3 INR (0.9-1.1) 1.0 APTT (23.6-32.8) sec 26.1 D-Dimer (<500) ng/mlFEU 539 H Sodium (136-145) mmol/L 140 Potassium (3.5-5.1) mmol/L 3.6 Chloride (98-107) mmol/L 101 Carbon Dioxide (21.0-32.0) mmol/L 30.0 Anion Gap (3-11) mmol/L 9.0 BUN (7-18) mg/dL 14 Creatinine (0.70-1.30) mg/dL 1.2 Est GFR (CKD-EPI 2020) (mL/min/1.73m2) 77.43 Glucose (74-106) mg/dL 95 Calcium (8.5-10.1) mg/dL 9.0 Total Bilirubin (0.2-1.0) mg/dL 0.38 AST (15-37) U/L 21 ALT (16-63) U/L 27 Alkaline Phosphatase (46-116) U/L 87 Troponin I (<or=76) ng/L 70 70 NT-Pro-B Natriuret Pep (<300) pg/mL 385 H Total Protein (6.4-8.2) g/dL 7.9 Albumin (3.4-5.0) g/dL 4.1 Quality:SDOH Health Related Social Needs: No Data to Display PFSH All Active Problems (Updated 10/12/24 @ 22:09 by Meaghan Mccray MD) Cellulitis (Acute) Abnormal ECG (Acute) Hypertension (Chronic) Social History Smoking/Tobacco Use Status: Current every day Tobacco Type: cigarettes Smoking risk assessment performed?: Yes Alcohol Intake: current Alcohol Intake frequency: a few times a week Drug use: Never Substance use type: does not use Housing: house Do you feel safe at home: Yes Do you feel safe in your relationship?: Yes Additional Social history: at side, very supportive PAWSS Have you Been Recently Intoxicated or Drunk Within the Last 30 days?: No Have you Ever Experienced Previous Episodes of Alcohol Withdrawal?: No Have you ever Experienced Withdrawal Seizures?: No Have you ever Experienced Delirium Tremens(DT)s?: No Have you ever undergone Alcohol Rehabilitation Treatment (i.e, inpt ot outpatient treatment programs)?: No Have you ever Experienced Blackouts?: No Have you ever Combined Alcohol with other Downers within the last 90 days?: No Have you ever Combined Alcohol with any other Substance of Abuse during the last 90 days?: No Positive Blood Alcohol level on Presentation? [PCS.BAL]: Unable to Obtain Evidence of Increased Autonomic Activity (i.e. HR>120, tremor, sweating, agitation, nausea)?: No Result: 0
[2024-10-12 20:27] LABS: PTT Activated 26.1 sec (23.6-32.8); Prothrombin Time 10.3 sec (9.1-11.1)
[2024-10-12 20:35] LABS: ALT 27 U/L (16-63); AST 21 U/L (15-37); Albumin 4.1 g/dL (3.4-5.0); Alkaline Phosphatase 87 U/L (46-116); BUN 14 mg/dL (7-18); Bilirubin, Total 0.38 mg/dL (0.2-1.0); CREATININE 1.2 mg/dL (0.70-1.30); Chloride 101 mmol/L (98-107); Estimated GFR 77.43 (mL/min/1.73m2); Glucose 95 mg/dL (74-106); NT-proBNP 385 pg/mL (<300); Potassium 3.6 mmol/L (3.5-5.1); Sodium 140 mmol/L (136-145); Total Protein 7.9 g/dL (6.4-8.2); Troponin I 70 ng/L (<or=76)
--- NOTE | 2024-10-12 20:51 | DI.VRAD_ITS ---
PROCEDURE INFORMATION: Exam: XR Chest Exam date and time: 10/12/2024 8:16 PM Age: 44 years old Clinical indication: Other: Left arm pain, acs workup TECHNIQUE: Imaging protocol: Radiologic exam of the chest. Views: 2 views. COMPARISON: CT Private^PE (Adult) 09/11/2018 11:24 PM FINDINGS: Lungs: No acute pulmonary infiltrates identified. There is no consolidation. No atelectasis. Pleural spaces: No effusions or pneumothoraces. Heart/Mediastinum: The heart is normal in size. The superior mediastinum is unremarkable. Bones/joints: No acute bony change of the thoracic spine or ribs. IMPRESSION: No acute disease. Dictated and Authenticated by: Reyes Amaya MD. Ordering:ROHINI Harding MD
--- NOTE | 2024-10-12 21:00 | DI.CT_ITS ---
Exam(s) CT THORAX ABD/PEL CTA EXAM: CT THORAX ABD/PEL CTA CLINICAL HISTORY: concern for dissection. TECHNIQUE: Imaging Protocol: Axial CT angiography was performed with multi-slice acquisition and mu lti-planar and/or 3D reconstructions. Computer aided detection (CAD) was utilized. CONTRAST MATERIAL: Intravenous: Omnipaque 350 Contrast volume:100 ml COMPARISON: CR,XR XR CHEST 2V PA LATERAL from 10/12/2024 FINDINGS: CHEST: Pulmonary Arteries: No evidence of filling defects to suggest pulmonary emboli. Tracheobronchial tree: No bronchiectasis or mucus plugging. Mediastinum and Cheri: No dominant adenopathy or fluid collection. Pulmonary parenchyma: No consolidation or dominant measurable mass. Pleura: No effusion. No pneumothorax. Heart: The heart is notdilated. No coronary artery calcifications are seen. Aorta: Thoracic aorta non-dilated. No evidence of dissection. No atherosclerotic changes are visible . Bones: Unremarkable for age. Tubes, Catheters, and Lines: None. Soft tissues: Bilateral gynecomastia. ABDOMEN and PELVIS: Liver: Normal size. Normal density. No suspicious measurable mass. Portal, Superior Mesenteric, and Splenic Veins: Unremarkable. Gallbladder and Biliary Tract: No radiodense calculus. No biliary dilatation. Pancreas: Normal density, no abnormal calcifications or inflammatory process. Spleen: Normal. Adrenals: No masses seen. Kidneys: Normal size, contour and axis. No radiodense stones. No obstructive uropathy. No masses seen . Vasculature: Abdominal aorta non-dilated. No visible atherosclerotic changes. Bowel: No obstruction or bowel wall thickening. Sigmoid diverticulosis. No evidence of diverticulit is. Appendix is not visualized. No pericecal inflammatory changes. Peritoneal Cavity: No ascites, collection or mesenteric inflammatory response. Lymph Nodes: Within normal limits. Soft Tissues: Unremarkable. Bladder: Symmetric distention, no gross wall thickening. Reproductive Organs: Unremarkable as visualized. Bones: Unremarkable for age. No acute findings. IMPRESSION: 1. No evidence of aortic dissection or pulmonary embolism. 2. No acute abdominal or pelvic process. RADIATION DOSE DELIVERED: Total DLP Total DLP DATA REPOSITORY: All CT scans at this facility are submitted to the National Radiology Data Registry (NRDR) Dose Index Registry (DIR) with the [employer] (ACR). RADIATION OPTIMIZATION: All CT scans at this facility use at least one of these dose optimization te chniques: automated exposure control; mA and/or kV adjustment per patient size (includes targeted exa ms where dose is matched to clinical indication); or iterative reconstruction.
[2024-10-12 21:09] LABS: D-Dimer 539 ng/mlFEU (<500)
[2024-10-12 21:16] LABS: Troponin I 70 ng/L (<or=76)
[2024-10-12] MEDS: Normal Saline - Diluent 50 ML VIAL IJ (21:37)
[2024-10-12] MEDS: Omnipaque 350 MG/ML 100 ML BTL IJ (21:38)
--- NOTE | 2024-10-12 22:26 | DI.VRAD_ITS ---
PROCEDURE INFORMATION: Exam: CTA Chest With Contrast CTA Abdomen and Pelvis With Contrast Exam date and time: 10/12/2024 9:24 PM Age: 44 years old Clinical indication: Other: Concern for dissection TECHNIQUE: Imaging protocol: Computed tomographic angiography of the chest with contrast. Exam focused on the arteries. Computed tomographic angiography of the abdomen and pelvis with contrast. Exam focused on the arteries. 3D rendering (Not supervised by radiologist): MIP and/or 3D reconstructed images were created by the technologist. Contrast material: OMNI 350; Contrast volume: 100 ml; Contrast route: INTRAVENOUS (IV); COMPARISON: CT Private^PE (Adult) 09/11/2018 11:24 PM FINDINGS: VASCULATURE: Great vessels off aortic arch: Visualized portions of the great vessels are patent without significant stenosis. Pulmonary arteries: Normal. No pulmonary emboli. Aorta: No aortic aneurysm. No aortic dissection. Celiac trunk and mesenteric arteries: No occlusion or significant stenosis. Renal arteries: No occlusion or significant stenosis. Right iliac arteries: No occlusion or significant stenosis. Left iliac arteries: No occlusion or significant stenosis. Thyroid: No thyroid lesions. No thyroid enlargement. CHEST: Trachea: The central airways clear. Lungs: No focal consolidation or other acute appearing pulmonary opacity. Pleural spaces: Unremarkable. No pneumothorax. No pleural effusion. Heart: No cardiomegaly or pericardial effusion. ABDOMEN AND PELVIS: Liver: The liver is unremarkable. Gallbladder and biliary ducts: No gallstones. Nondistended. No wall thickening. Pancreas: The pancreas is unremarkable. Spleen: No splenomegaly. No lesions. Adrenal glands: The adrenal glands are unremarkable. Kidneys and ureters: The kidneys are normal. Stomach and bowel: No evidence of bowel obstruction. No pericolonic inflammatory stranding. Colonic diverticulosis without evidence of diverticulitis. Appendix: Appendix is not seen but there is no pericecal inflammatory change. Intraperitoneal space: Unremarkable. No free air. No significant fluid collection. Urinary bladder: No focal wall thickening of the urinary bladder. Reproductive: Unremarkable as visualized. Lymph nodes: No mesentery adenopathy. No edema. Bones/joints: No acute osseous abnormality. No acute osseous abnormality. Soft tissues: Soft tissues are unremarkable as visualized. Bilateral gynecomastia. Bilateral fat containing inguinal hernias. Other findings: Patent vessels without evidence of aneurysm, dissection, occlusion or critical stenosis. IMPRESSION: No evidence of aortic dissection or aneurysm. No acute findings. Dictated and Authenticated by: Deonna Hernandez MD. Ordering:ROHINI Harding MD
[2024-10-12] MEDS: Clindamycin 300 MG CAP PO (22:30)
== END 2024-10-12 22:31 | disposition home or self-care (01) ==
PROVIDERS: Emergency Provider Student in an Organized Health Care Education/Training Program; PCP Family Medicine
DX: I10 Essential (primary) hypertension; R94.31 Abnormal electrocardiogram [ECG] [EKG]; M79.602 Pain in left arm; L03.114 Cellulitis of left upper limb; Z91.199 Patient's noncompliance with other medical treatment and regimen due to unspecified reason
CPT/HCPCS: 36415; 71275; 80053; 93005; 99285; 71046; 74174; 83880; 84484; 85025; 85379; 85610; 85730; 93010; 99284; J3490

== ENCOUNTER 2025-08-02 13:59 | Outpatient (REF) | payer BC, SELFPAY ==
[2025-08-02 16:21] LABS: Hemoglobin A1C 4.9 % (<5.7)
== END 2025-08-02 14:00 | disposition home or self-care (01) ==
LOC: NCHCN 13:59
PROVIDERS: PCP Family Medicine; Visit Provider Family Medicine
DX: I10 Essential (primary) hypertension (principal); Z13.220 Encounter for screening for lipoid disorders; Z13.29 Encounter for screening for other suspected endocrine disorder; Z13.1 Encounter for screening for diabetes mellitus
CPT/HCPCS: 80048; 80061; 83036; 84443

== ENCOUNTER 2025-08-17 14:14 | Outpatient (REF) | payer SELFPAY ==
[2025-08-16 19:58] LABS: Abs Immature Grans 0.03 10^3/uL (0.0-0.06); HCT 45.8 % (40.0-50.0); HGB 16.2 g/dL (13.5-17.5); Immature Grans % 0.3 %; MCH 31.5 pg (27.0-33.0); MCHC 35.4 % (32.0-36.0); MCV 89 fL (80-95); MPV 10.4 fL (8.0-11.0); Platelet Count 276 10^3/uL (130-400); RBC 5.14 10^6/uL (4.36-5.78); RDW 11.8 % (11.8-14.1); RDW-SD 38.5 fL; WBC 9.69 10^3/uL (4.4-10.8)
[2025-08-16 20:17] LABS: Anion Gap 10.2 mmol/L (3-11); BUN 14 mg/dL (7-18); CO2 26.8 mmol/L (21.0-32.0); Calcium 9.3 mg/dL (8.5-10.1); Calculated LDL 88 mg/dL (<100); Chloride 101 mmol/L (98-107); Cholesterol 195 mg/dL (<200); Estimated GFR 108.68 (mL/min/1.73m2); Glucose 97 mg/dL (74-106); HDL Cholesterol 36 mg/dL (>or=40); Potassium 4.2 mmol/L (3.5-5.1); Sodium 138 mmol/L (136-145); TSH 0.83 uIU/mL (0.36-3.74); Triglyceride 358 mg/dL (<150)
== END 2025-08-17 14:15 | disposition home or self-care (01) ==
LOC: NCHCN 14:14
PROVIDERS: PCP Family Medicine; Visit Provider Family Medicine
DX: E66.811 Obesity, class 1 (principal); E66.09 Other obesity due to excess calories; Z68.33 Body mass index [BMI] 33.0-33.9, adult
CPT/HCPCS: 80048; 80061; 84443; 85025